=== PATIENT | male | born 2000 | race African-American/Black ===

== ENCOUNTER 2023-12-24 18:22 | Emergency (ER) | payer OTHER ==
[~2023-12-24] VITALS: Ht 195.6 cm; Wt 114.8 kg
[2023-12-24 18:22] VITALS: PULSE 84; RESP 18; TEMP 99.4; O2SAT 97
[2023-12-24] MEDS ORDERED: PREDNISONE20 MG PO (18:43)
[2023-12-24] MEDS ORDERED: DEXAMETHASONE SOD PHOS 10 MG/1 ML VIAL IM ONE (18:45)
[2023-12-24] MEDS: DEXAMETHASONE SOD PHOS INJ 4 MG/ML SDV IM ONE (19:12)
== END 2023-12-24 19:15 | disposition home or self-care (01) ==
LOC: FSED 18:27
DX: R21 Rash and other nonspecific skin eruption (principal); L50.9 Urticaria, unspecified; T78.40XA Allergy, unspecified, initial encounter; F17.210 Nicotine dependence, cigarettes, uncomplicated
CPT/HCPCS: 96372; 99283; J1100 ×2